=== PATIENT | male | born 1960 | race Caucasian/White ===

== ENCOUNTER 2017-10-08 07:38 | Observation (INO) | payer BC ==
[~2017-10-08] VITALS: Ht 182.9 cm; Wt 100.5 kg
[2017-10-08 08:32] LABS: BASOPHIL (%) 0.3 % (0-1); EOSINOPHIL (%) 0 % (0-5); HEMATOCRIT 34.2 % (38.0-50.0); IMMATURE GRANULOCYTE (%) 0.5 % (0.0-0.7); LYMPHOCYTE (%) 4.9 % (15-42); LYMPHOCYTE COUNT 0.6 K/uL (1.0-2.8); MCH 31.7 PG (29.0-34.0); MCHC 34.2 G/DL (30.0-36.0); MCV 92.7 FL (86-99); MONOCYTE (%) 4.3 % (3-12); MONOCYTE COUNT 0.5 K/uL (0-0.8); NEUTROPHIL COUNT 10.6 K/uL (1.8-6.4); RBC DIS.WIDTH-CV 13.1 % (11.8-14.6); RBC DIS.WIDTH-SD 44.7 % (39-53); WHITE BLOOD COUNT 11.7 K/uL (4.1-10.2)
[2017-10-08 08:35] LABS: HEMOGLOBIN 11.7 G/DL (12.5-16.6); PLATELET COUNT 324 K/uL (156-360); RED BLOOD COUNT 3.69 M/uL (4.00-5.50)
[2017-10-08 08:38] LABS: INTER. NORMALIZED RATIO 1.2
[2017-10-08 08:40] LABS: PTT 27.9 SEC (25-37)
[2017-10-08 08:43] LABS: CHLORIDE 108 mEq/L (99-109); POTASSIUM 4.8 mEq/L (3.7-5.4); SODIUM 137 mEq/L (136-147)
[2017-10-08 08:46] LABS: GLUCOSE 128 mg/dL (70-99); TOTAL PROTEIN 5.9 g/dL (6.4-8.3)
[2017-10-08 08:48] LABS: TOTAL BILIRUBIN 1.6 mg/dL (0.0-1.0)
[2017-10-08 08:49] LABS: ALKALINE PHOSPHATASE 298 IU/L (3-129); CREATININE 0.9 mg/dL (0.6-1.3); GFR ESTIMATE (CALCULATED) > 59 mL/min/ (58.99-99999)
[2017-10-08 08:50] LABS: UREA NITROGEN (BUN) 22 mg/dL (9-23)
[2017-10-08 08:51] LABS: AST (GOT) 454 IU/L (2-34)
[2017-10-08 08:52] LABS: TROP-I INTERPRETATION NEGATIVE; TROPONIN-I 0.01 ng/mL (0.0-0.30)
[2017-10-08 08:52] LABS: ALT (GPT) 228 IU/L (3-49)
[2017-10-08] MEDS ORDERED: B COMPLEX #11 EACH PO (13:20)
[2017-10-08] MEDS ORDERED: VITAMIN C1000 MG PO (13:21)
[2017-10-08] MEDS ORDERED: VITAMIN D31000 UNI2 PO (13:21)
[2017-10-08] MEDS ORDERED: METOPROLOL SUC100 MG PO (13:23)
[2017-10-08] MEDS ORDERED: MULTI VITAMIN1 EACH PO (13:23)
[2017-10-08] MEDS ORDERED: CHANTIX1 EACH PO (13:24)
[2017-10-08] MEDS ORDERED: OMEPRAZOLE40 M1 PO (13:24)
[2017-10-08 14:15] VITALS: BP 111/70
[2017-10-08 19:00] VITALS: BP 112/76
[2017-10-09 04:09] VITALS: BP 126/90
[2017-10-09 05:45] LABS: HEMATOCRIT 30.9 % (38.0-50.0); HEMOGLOBIN 10.1 G/DL (12.5-16.6); MCHC 32.7 G/DL (30.0-36.0); MCV 94.8 FL (86-99); PLATELET COUNT 273 K/uL (156-360); RBC DIS.WIDTH-CV 13.3 % (11.8-14.6); RBC DIS.WIDTH-SD 46.2 % (39-53); RED BLOOD COUNT 3.26 M/uL (4.00-5.50); WHITE BLOOD COUNT 5.3 K/uL (4.1-10.2)
[2017-10-09 06:00] LABS: ALBUMIN 2.7 G/DL (3.2-4.8); ALKALINE PHOSPHATASE 179 IU/L (3-129); ALT (GPT) 129 IU/L (3-49); AST (GOT) 138 IU/L (2-34); CHLORIDE 111 MEQ/L (99-109); CREATININE 1.3 MG/DL (0.6-1.3); GFR ESTIMATE (CALCULATED) > 59 mL/min/ (58.99-99999); POTASSIUM 4.4 MEQ/L (3.7-5.4); SODIUM 140 MEQ/L (136-147); TOTAL PROTEIN 5.4 G/DL (6.4-8.3); UREA NITROGEN (BUN) 13 mg/dL (9-23)
[2017-10-09 06:02] LABS: GLUCOSE 89 mg/dL (70-99)
[2017-10-09 08:18] VITALS: BP 148/85
[2017-10-09 13:24] VITALS: BP 123/83
[2017-10-09 16:49] VITALS: BP 157/96
[2017-10-09 17:41] VITALS: BP 142/82
[2017-10-10 00:07] VITALS: BP 132/61
[2017-10-10 07:54] VITALS: BP 131/62
[2017-10-10 11:58] VITALS: BP 122/80
[2017-10-10] MEDS ORDERED: COLACE100 MG PO (12:00)
[2017-10-10] MEDS ORDERED: DILAUDID2 MG PO (12:00)
[2017-10-10] MEDS ORDERED: ZOFRAN ODT4 MG PO (12:00)
[2017-10-10] MEDS ORDERED: AUGMENTIN875 MG PO (12:00)
== END 2017-10-10 15:30 | disposition home or self-care (01) ==
LOC: EME 07:38 → EDOF 12:04 → 4SOUTH 12:04 → EDOF 12:04 → ENRESERV 12:09 → 4SOUTH 13:55 → ENPENDDIS 10-10 → 4SOUTH 10-10 15:30
PROVIDERS: Emergency Medicine; Surgery
PROC: 0FT44ZZ Resection of Gallbladder, Percutaneous Endoscopic Approach (ICD-10-PCS; principal; 2017-10-08)
PROC: 0FN Hepatobiliary System and Pancreas, Release (ICD-10-PCS; principal; 2017-10-08)
DX: K80.12 Calculus of gallbladder with acute and chronic cholecystitis without obstruction (principal); Z98.84 Bariatric surgery status; I10 Essential (primary) hypertension; K92.1 Melena; K66.0 Peritoneal adhesions (postprocedural) (postinfection); Z68.30 Body mass index [BMI] 30.0-30.9, adult
CPT/HCPCS: 71045; 74177; 76705; 80053; 84484; 85025; 85027; 85610; 85730; 86850; 86900; 86901; 88304; 93005; 99281; 99285; G0378; J0131; J1100; J1170; J2250; J2405; J2543; J2710; J3010; J7030; J7050; J7643; S0020; S0028

== ENCOUNTER → 2017-10-26 | Outpatient (CLI) | payer BC ==
[~2017-10-26] MED LIST: AUGMENTIN875 MG PO; B COMPLEX #11 EACH PO; CHANTIX1 EACH PO; COLACE100 MG PO; DILAUDID2 MG PO; METOPROLOL SUC100 MG PO; MULTI VITAMIN1 EACH PO; OMEPRAZOLE40 M1 PO; TOPROL XL100 MG PO; VITAMIN B12 PO; VITAMIN C1000 MG PO; VITAMIN D31000 UNI2 PO; ZOFRAN ODT4 MG PO
== END | disposition home or self-care (01) ==
LOC: NUC 07:10
DX: Z90.49 Acquired absence of other specified parts of digestive tract (principal)
CPT/HCPCS: 78226; A9537

== ENCOUNTER → 2017-10-31 | Outpatient (CLI) | payer BC ==
[~2017-10-31] VITALS: Ht 182.9 cm; Wt 99.4 kg
== END | disposition home or self-care (01) ==
LOC: AMB 12:06
PROC: 0DJ0XZZ Inspection of Upper Intestinal Tract, External Approach (ICD-10-PCS; principal; 2017-10-31)
DX: K91.89 Other postprocedural complications and disorders of digestive system (principal); Z53.09 Procedure and treatment not carried out because of other contraindication
CPT/HCPCS: J0330

== ENCOUNTER → 2017-11-13 | Outpatient (CLI) | payer BC | END | disposition home or self-care (01) | LOC: NUC 08:21 | DX: K21.9 Gastro-esophageal reflux disease without esophagitis (principal); Z90.49 Acquired absence of other specified parts of digestive tract | CPT/HCPCS: 78226; A9537 ==